=== PATIENT | female | born 1955 | race Caucasian/White ===

== ENCOUNTER 2018-05-09 01:19 | Inpatient (IN) | payer OTHER, SELFPAY ==
[2018-05-09] VITALS (17 sets, daily range): BP systolic 95–160; BP diastolic 56–99; PULSE 77–128; RESP 14–20; TEMP 36.7–39.7; O2SAT 93–98; BMI 33.9; BMI 33.4
--- NOTE | 2018-05-09 01:51 | ED.DCSUM_ITS ---
- ER Visit Summary Date of Service: 05/09/18 Chief Complaint: [] Fever and chills History of Present Illness: The patient is a 63 F patient states she has had a fever for the last 2 hours gradual onset intermittent. She did know she had a fever but she had chills. Tonight she had vomited vomiting ?[address] the hospital. She felt sick yesterday but no significant symptoms other than weakness and fatigue. She denies any respiratory symptoms. No sore throat and she has no pain in her abdomen back or other portions of her body. No urinary symptoms. No sick contacts. She has a history of remote diverticulitis but is not having any diarrhea or abdominal pain. Physical Examination: [] Vital signs reviewed General: Well-nourished well-developed Head: Normocephalic atraumatic Eyes: Pupils equal round and reactive to light extraocular movements intact ENT: TMs clear no hemotympanum no trauma Neck: Nontender full range of motion Cardiovascular: Regular tachycardia with normal rhythm no murmurs normal S1-S2 Respiratory: No distress clear to auscultation bilaterally chest nontender Abdomen: Soft nontender nondistended normal bowel sounds no masses Back: Nontender no CVA tenderness Extremities: Nontender active range of motion ?4 extremities no trauma Skin: Normal color no trauma Neuro alert oriented cranial nerves II through XII intact normal strength sensation reflexes Test Results: [] Emergency Department Course and Treatment: [] Patient given IV fluids Tylenol and Zofran. Lab work obtained lab work shows urinary tract infection with positive leukocytes nitrites 5200 whites and 1+ bacteria. Lactate is 2.5. Platelets 116. Chemistries normal except creatinine 1.1. Blood cultures ?2 pending. Patient felt better after treatment. Given a dose of ceftriaxone IV. At this time due to her sirs criteria being positive with a urinary infection and a elevated lactate she does eat severe sepsis criteria. She will be given a second liter fluid and will be admitted. Treatment Plan: [] Disposition: [] Impression: [] This note was generated with [employer] dictation software. It may contain incorrect words, spelling, and punctuation that were not noted in review of the chart prior to signing ED Disposition - Plan for ED Patient: Chief Complaint: General Illness Referrals: [facility] Doctor,Out of [Primary Care Provider] -
[2018-05-09] MEDS: Acetaminophen 500 MG Tablet 1000 MG PO (01:57)
[2018-05-09] MEDS: Ondansetron 4 MG/2 ML Vial IV (01:57)
[2018-05-09] MEDS: 0.9% Normal Saline 1,000 ML 1000 ML IV ×2 (01:57→02:35)
[2018-05-09 02:01] LABS: Absolute Lymphocyte Count 0.57 X10^3/ul (0.83-4.51); Absolute Neutrophil Count 8.2 X10^3/uL (2.0-7.7); Basophil# 0.03 X10^3/uL; Basophil% 0.3 % (0-1); Eosinophil# 0.07 X10^3/uL; Eosinophils% 0.8 % (0-5); Hematocrit 39.8 % (37-47); Hemoglobin 13.5 g/dl (12.0-15.0); Lymphocyte # 0.57 X10^3/ul (4.0); Lymphocyte % 6.3 % (19-41); Mean Corp Hgb Conc 33.9 g/gl (32-36); Mean Corpuscular Hgb 30.5 pg (27.0-32.0); Mean Platelet Vol. 11.5 fl (6.2-12.0); Monocyte# 0.17 X10^3/uL; Monocyte% 1.9 % (0-10); Neutrophil % 90.6 % (47-70); Platelet Count 116 K/mm3 (150-450); RBC Distribution Width CV 12.5 % (11.6-14.6); Red Blood Count 4.42 M/mm3 (4.2-5.4); White Blood Count 9.1 K/mm3 (4.4-11.0)
[2018-05-09 02:02] LABS: Differential Indicated SCAN CRITERIA MET; POSITIVE COUNT NO; POSITIVE DIFFERENTIAL YES; POSITIVE MORPHOLOGY NO
[2018-05-09 02:05] LABS: Mucous, Urine 0 SEEN /hpf (<or=2+)
[2018-05-09 02:06] LABS: Anion Gap 7 (5-15); BUN 11 mg/dL (7-18); BUN/Creat Ratio 9.6 RATIO (10-20); Calcium,Total 9.1 mg/dL (8.5-10.1); Chloride 106 mmol/L (98-107); Creatinine, Serum 1.14 mg/dL (0.55-1.02); EST Glomerular Filtration Rate 51 mL/min (>60); Est Glom Filt Rate - Afr Amer 62 mL/min (>60); Estimated Creatinine Clearance 49.76 ml/min; Glucose 150 mg/dL (74-106); Potassium 3.9 mmol/L (3.5-5.1); Sodium Level 139 mmol/L (136-145)
[2018-05-09 02:07] LABS: Color, Urine Yellow (Yellow); Glucose, Dipstick Normal (Normal); Ketone-Dipstick Negative (Negative); Leukocyte Esterase-Dipstick 500 /ul (Negative); Nitrite-Dipstick Positive (Negative); Occult Blood-Urine 50 /ul (Negative); Protein-Dipstick 30 mg/dl (Negative); Specific Gravity, Urine 1.015 (1.002-1.030); Urine Bilirubin Dipstick Negative (Negative); Urine Clarity Cloudy (Clear); Urine Urobilinogen Normal (Normal)
[2018-05-09 02:20] LABS: Red Blood Cells-Urine 5-10 SEEN /hpf (0-5); White Blood Cells 50-100 SEEN /hpf (0-5)
[2018-05-09 02:21] LABS: Bacteria 1+ /hpf (None Seen); Squamous Epithelial Cells - UA 0-5 SEEN /hpf (5-10)
[2018-05-09 02:23] LABS: Lactic Acid 2.5 mmol/L (0.4-2.0)
[2018-05-09] MEDS: Ceftriaxone 1 GM/50 ML BAG IV (02:42)
--- NOTE | 2018-05-09 03:51 | PCM.HP.STD ---
Problem List (1) Severe sepsis Status: Acute (2) UTI (urinary tract infection) Status: Acute (3) Lipidemia Status: Acute (4) HTN (hypertension) Status: Chronic (5) Depression Status: Acute History of Present Illness Date of Admission: 05/09/18 Chief Complaint: Severe sepsis secondary UTI The patient is a 63 year old female w/ h/o lipidemia, HTN, and depression admitted for severe sepsis secondary to UTI. She has been feeling unwell x 2 days. This AM, she felt nausea and was unable to tolerate any PO intake. She also has been having chill. Chill was constant and interfered with her ADLs. Nothing appeared to make it better or worse. She has increase frequency and dysuria. No burning sensation. No other diarrhea. Past Medical History Past Medical History (Chronic Problems): Chronic Problems HTN (hypertension) (Chronic) Allergies amoxicillin [From Augmentin] Adverse Reaction (Verified 05/09/18 01:20) Vomiting clavulanic acid [From Augmentin] Adverse Reaction (Verified 05/09/18 01:20) Vomiting Home Medications: Ambulatory Orders Medication Instructions Recorded Aspirin E.C. [Ecotrin] 81 mg PO DAILY@0800 05/09/18 Atorvastatin Calcium 40 mg PO DAILY 05/09/18 Calcium Carbonate [Calcium] 600 mg PO DAILY 05/09/18 Desloratadine [Clarinex] 5 mg PO DAILY 05/09/18 Esomeprazole Mag Trihydrate 20 mg PO DAILY 05/09/18 [Nexium] Fluoxetine HCl [Prozac] 20 mg PO DAILY 05/09/18 Lisinopril [Lisinopril] 20 mg PO DAILY 05/09/18 Magnesium 500 mg PO DAILY 05/09/18 Lives: Spouse/ Significant Other Smoking Status: Former smoker Alcohol: None Drugs: None - *Family History Maternal History Items: No pertinent history Review of Systems Constitutional: Denies: Chills, Fever, Weight Change HEENT: Denies: Head Aches, Sinus Congestion, Sinus Drainage Cardiovascular: Denies: Chest Pain, Palpitations Respiratory: Denies: Cough, Shortness of breath at rest, Sputum production Gastrointestinal: Denies: Abdominal Pain, Nausea, Vomiting Genitourinary: Denies: Dysuria Musculoskeletal: Denies: Joint Pain, Joint Tenderness Skin: Denies: Rash, Wounds Neurological: Denies: Numbness, Tingling, Focal weakness Psychiatric: Denies: Anxiety, Depression, Homicidal Ideations, Suicidal Ideations Hematologic/ Lymphatic: Denies: Easy Bruising, Easy Bleeding VTE Information - Inpt Only VTE Present on Admission: No VTE Mechan Device Prophylaxis: SCD's VTE Pharm Prophylaxis ordered?: Yes Patient Problems: Active and Suspected Problems Severe sepsis (Acute) UTI (urinary tract infection) (Acute) Lipidemia (Acute) Depression (Acute) - Physical Exam General: Alert, Oriented x3, Cooperative HEENT: Atraumatic, PERRLA, EOMI, Normocephalic Neck: Supple, No JVD, Negative Carotid Bruits Lungs: Clear to auscultation, Normal air movement Cardiovascular: Regular rate, No murmurs Abdomen: Bowel Sounds Present, Soft, Non Tender Extremities: No edema, Capillary Refill Less than 3 Seconds Skin: No rashes, No breakdown Musculoskeletal: No Tenderness to Palpation of Joints or Extremities Neurological: Cranial nerves II-XII grossly intact Psych/Mental Status: Normal Affect, Appropriate Vital Signs Temp Pulse Resp BP Pulse Ox 100.4 F H 104 H 14 119/65 95 05/09/18 02:45 05/09/18 02:45 05/09/18 02:45 05/09/18 02:45 05/09/18 02:45 Oxygen Delivery Method Room Air Weight: 98.2 kg Body Mass Index (BMI) 33.9 Laboratory Tests Past 24 Hrs 05/09/18 05/09/18 05/09/18 01:30 01:30 01:30 WBC 9.1 RBC 4.42 Hgb 13.5 Hct 39.8 MCV 90.0 MCH 30.5 MCHC 33.9 RDW 12.5 RDW Differential 41.0 Plt Count 116 L MPV 11.5 Immature Gran % (Auto) 0.100 Neut % (Auto) 90.6 H Lymph % (Auto) 6.3 L [place] % (Auto) 1.9 Eos % (Auto) 0.8 Baso % (Auto) 0.3 Absolute Neuts (auto) 8.2 H Absolute Lymphs (auto) 0.57 L Total Counted Not Reportable Sodium 139 Potassium 3.9 Chloride 106 Carbon Dioxide 26.0 Anion Gap 7 BUN 11 Creatinine 1.14 H Estim Creat Clear Calc 49.76 Est GFR (MDRD) Af Amer 62 Est GFR (MDRD) Non-Af 51 L BUN/Creatinine Ratio 9.6 L Glucose 150 H Lactic Acid 2.5 H Calcium 9.1 Urine Color Urine Clarity Urine pH Ur Specific [place] Urine Protein Urine Glucose (UA) Urine Ketones Urine Occult Blood Urine Nitrite Urine Bilirubin Urine Urobilinogen Ur Leukocyte Esterase Urine RBC Urine WBC Ur Squamous Epith Cells Urine Bacteria Urine Mucus 05/09/18 01:56 WBC RBC Hgb Hct MCV MCH MCHC RDW RDW Differential Plt Count MPV Immature Gran % (Auto) Neut % (Auto) Lymph % (Auto) [place] % (Auto) Eos % (Auto) Baso % (Auto) Absolute Neuts (auto) Absolute Lymphs (auto) Total Counted Sodium Potassium Chloride Carbon Dioxide Anion Gap BUN Creatinine Estim Creat Clear Calc Est GFR (MDRD) Af Amer Est GFR (MDRD) Non-Af BUN/Creatinine Ratio Glucose Lactic Acid Calcium Urine Color Yellow Urine Clarity Cloudy Urine pH 6.0 Ur Specific [place] 1.015 Urine Protein 30 H Urine Glucose (UA) Normal Urine Ketones Negative Urine Occult Blood 50 H Urine Nitrite Positive H Urine Bilirubin Negative Urine Urobilinogen Normal Ur Leukocyte Esterase 500 H Urine RBC 5-10 SEEN Urine WBC 50-100 SEEN Ur Squamous Epith Cells 0-5 SEEN Urine Bacteria 1+ Urine Mucus 0 SEEN Assessment/Plan All Active Problems Severe sepsis (Acute) UTI (urinary tract infection) (Acute) Lipidemia (Acute) Depression (Acute) 63 year old female w/ h/o lipidemia, HTN, and depression admitted for severe sepsis secondary to UTI. 1) Severe sepsis secondary to UTI: She has hypotension, tachycardia, and lactate noted. Will fluid resuscitate. C/w ceftriaxone. Repeat lactate. Cultures pending. 2) UTI: Ceftriaxone. Cultures pending. Will get bladder scan. If no improvement, will consider renal US. 3) Chronic issues: lipidemia and depression Resume home meds. 4) Prophylaxis: SCD / heparin
--- NOTE | 2018-05-09 04:49 | NURSING ---
Pt arrived to PCU at this time. 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
[2018-05-09] MEDS: Heparin Injection (Vial) 5,000 UNIT/ML VIAL 5000 UNIT SC ×3 (05:22→21:25)
[2018-05-09] MEDS: 0.9% Normal Saline 1,000 ML 100 ML IV ×2 (05:22→15:56)
[2018-05-09 05:53] LABS: Reflex Lactate? Y
[2018-05-09 06:29] LABS: Hematocrit 33.5 % (37-47); Hemoglobin 11.6 g/dl (12.0-15.0); Mean Corp Hgb Conc 34.6 g/gl (32-36); Mean Corpuscular Hgb 31.8 pg (27.0-32.0); Mean Corpuscular Volume 91.8 fL (81-99); Mean Platelet Vol. 11.2 fl (6.2-12.0); Platelet Count 109 K/mm3 (150-450); RBC Distribution Width CV 12.2 % (11.6-14.6); RBC Distribution Width SD 39.8 fl (35.1-43.9); Red Blood Count 3.65 M/mm3 (4.2-5.4); White Blood Count 11.5 K/mm3 (4.4-11.0)
[2018-05-09 06:31] LABS: Scan Indicated on CBC? Y/N NO
[2018-05-09 06:49] LABS: Anion Gap 7 (5-15); BUN 10 mg/dL (7-18); BUN/Creat Ratio 10.1 RATIO (10-20); Calcium,Total 8.1 mg/dL (8.5-10.1); Chloride 113 mmol/L (98-107); Creatinine, Serum 0.99 mg/dL (0.55-1.02); EST Glomerular Filtration Rate 60 mL/min (>60); Est Glom Filt Rate - Afr Amer 73 mL/min (>60); Glucose 132 mg/dL (74-106); Sodium Level 145 mmol/L (136-145)
[2018-05-09] MEDS: Loratadine 10 MG Tablet PO (09:25)
[2018-05-09] MEDS: Magnesium Oxide 400 MG Tablet PO (09:25)
[2018-05-09] MEDS: Aspirin E.C. 81 MG Tablet PO (09:25)
[2018-05-09] MEDS: Calcium (Elemental) 500 MG Tablet PO (09:25)
[2018-05-09] MEDS: Lisinopril 20 MG Tablet PO (09:26)
[2018-05-09] MEDS: FLUoxetine 20 MG Capsule PO (09:26)
[2018-05-09] MEDS: Pantoprazole Sodium 20 MG Tablet PO (09:26)
[2018-05-09] MEDS: Acetaminophen 325 MG Tablet 650 MG PO (11:58)
--- NOTE | 2018-05-09 13:04 | CASEMGMT ---
RN CM Assessment. DC Plan: Home No Needs identified. [place] JONESN RN ACM
[2018-05-09] MEDS: oxyCODONE 5 MG Tablet PO (13:58)
[2018-05-09] MEDS: Ceftriaxone 1 GM/50 mL Premix x1 IV (14:25)
[2018-05-09] MEDS: Atorvastatin Calcium 40 MG Tablet PO (21:24)
[2018-05-10] VITALS (11 sets, daily range): BP systolic 107–120; BP diastolic 62–78; PULSE 75–83; RESP 16; TEMP 36.8–37.6; O2SAT 92–98
[2018-05-10] MEDS: 0.9% Normal Saline 1,000 ML 100 ML IV ×3 (01:50→21:55)
[2018-05-10] MEDS: oxyCODONE 5 MG Tablet PO (06:16)
[2018-05-10] MEDS: Heparin Injection (Vial) 5,000 UNIT/ML VIAL 5000 UNIT SC ×3 (06:17→21:51)
[2018-05-10 06:54] LABS: Absolute Lymphocyte Count 0.69 X10^3/ul (0.83-4.51); Absolute Neutrophil Count 5.6 X10^3/uL (2.0-7.7); Basophil# 0.02 X10^3/uL; Basophil% 0.3 % (0-1); Eosinophil# 0.07 X10^3/uL; Hematocrit 33.9 % (37-47); Hemoglobin 11.1 g/dl (12.0-15.0); Lymphocyte # 0.69 X10^3/ul (4.0); Lymphocyte % 9.5 % (19-41); Mean Corp Hgb Conc 32.7 g/gl (32-36); Mean Corpuscular Hgb 30.7 pg (27.0-32.0); Mean Corpuscular Volume 93.9 fL (81-99); Mean Platelet Vol. 11.7 fl (6.2-12.0); Monocyte# 0.88 X10^3/uL; Monocyte% 12.1 % (0-10); Neutrophil # 5.62 X10^3/uL (2.7-7.7); Platelet Count 86 K/mm3 (150-450); RBC Distribution Width CV 12.7 % (11.6-14.6); RBC Distribution Width SD 42.5 fl (35.1-43.9); Red Blood Count 3.61 M/mm3 (4.2-5.4); White Blood Count 7.3 K/mm3 (4.4-11.0)
[2018-05-10 06:57] LABS: POSITIVE COUNT NO; POSITIVE DIFFERENTIAL NO; POSITIVE MORPHOLOGY NO
[2018-05-10] MEDS: Aspirin E.C. 81 MG Tablet PO (07:57)
--- NOTE | 2018-05-10 08:15 | PCM.PROGNOTE ---
Patient Problems: Active and Suspected Problems Severe sepsis (Acute) UTI (urinary tract infection) (Acute) Subjective: Chief complaint: Follow-up after admission for severe sepsis due to acute cystitis. She was found to have gram-negative bacteremia. Patient seen and examined. No acute events overnight. Today, she mentioned that she does not feel well, having some headache. She denies any specific symptoms. Denied chest pain or shortness of breath. Denied cough or sputum production. Denied abdominal pain, nausea vomiting. Maximum temperature overnight was 99.7 Fahrenheit. Other vital signs are stable. - Physical Exam General: Alert, Oriented x3, Cooperative, No apparent distress HEENT: Atraumatic, PERRLA, EOMI, Normocephalic Oral: Moist Mucosa, No Gingival or Mucosal Lesions/ Ulcerations Neck: Supple, No JVD, Negative Carotid Bruits, Trachea Midline, Thyroid Normal Size and Texture Lungs: Clear to auscultation, No rhonchi, No wheeze, No rales, Diminished Cardiovascular: Regular rate, Regular Rhythm, Normal S1, Normal S2, No murmurs Abdomen: Bowel Sounds Present, Soft, Non Tender, Non-Distended, No Hepato-splenomegaly Extremities: No clubbing, No cyanosis, No edema Skin: No rashes, No breakdown Lymphatic: No Cervical, Supraclavicular, or Inguinal Adenopathy Neurological: Cranial nerves II-XII grossly intact, Motor Exam 5/5 strength throughout Psych/Mental Status: Normal Affect, Appropriate, Alert and oriented to time, place, person, mood and affect Vital Signs Temp Pulse Resp BP Pulse Ox 99.6 F H 81 16 107/65 92 05/10/18 03:20 05/10/18 06:54 05/10/18 03:20 05/10/18 03:20 05/10/18 03:20 Oxygen Delivery Method Room Air Weight: 213 lb 6.519 oz Body Mass Index (BMI) 33.4 Intake and Output for Last 24 Hours 05/08/18 05/09/18 05/10/18 23:59 23:59 23:59 Intake Total 3219 / 3219 675 / 675 Output Total 700 / 700 Balance 2519 / 2519 675 / 675 Laboratory Tests Past 24 Hrs 05/10/18 06:00 WBC 7.3 RBC 3.61 L Hgb 11.1 L Hct 33.9 L MCV 93.9 MCH 30.7 MCHC 32.7 RDW 12.7 RDW Differential 42.5 Plt Count 86 L MPV 11.7 Immature Gran % (Auto) 0.100 Neut % (Auto) 77.0 H Lymph % (Auto) 9.5 L [place] % (Auto) 12.1 H Eos % (Auto) 1.0 Baso % (Auto) 0.3 Absolute Neuts (auto) 5.6 Absolute Lymphs (auto) 0.69 L Total Counted Not Reportable Medical Necessity - Tobacco Use Smoking Status: Former smoker Assessment/Plan All Active Problems Severe sepsis (Acute) UTI (urinary tract infection) (Acute) This is a 63 years old female patient presented to the medicine because of fever and chills, found to have acute cystitis with severe sepsis as well as gram-negative bacteremia. #1 acute cystitis/severe sepsis: She is on IV Rocephin. Her vital signs are stable, maximum temperature overnight was 99.7 Fahrenheit. Leukocytosis resolved. Urine cultures pending. Blood culture revealed gram-negative rods, final is pending. Plan to continue same treatment. #2 gram-negative bacteremia: Source is likely the acute cystitis. 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 She is on IV Rocephin as above. Infectious disease consulted, plan to continue same treatment, repeat blood culture later tomorrow or after tomorrow morning. #3 hypertension: Blood pressure stable, continue lisinopril. #4 hyperlipidemia: Continue statins. #5 depression: Continue Prozac. #6 GERD: Continue PPI. #7 DVT prophylaxis: Subcu heparin. This note was generated with [employer] dictation software. It may contain incorrect words, spelling, and punctuation that were not noted in checking the note before signing. Code Visit Inpatient E&M: 38124 Subs Hosp L3
--- NOTE | 2018-05-10 08:20 | PN_ITS ---
Patient Problems: Active and Suspected Problems Severe sepsis (Acute) UTI (urinary tract infection) (Acute) Subjective: Chief complaint: Follow-up after admission for severe sepsis due to acute cystitis. She was found to have gram-negative bacteremia. Patient seen and examined. No acute events overnight. Today, she mentioned that she does not feel well, having some headache. She denies any specific symptoms. Denied chest pain or shortness of breath. Denied cough or sputum production. Denied abdominal pain, nausea vomiting. Maximum temperature overnight was 99.7 Fahrenheit. Other vital signs are stable. - Physical Exam General: Alert, Oriented x3, Cooperative, No apparent distress HEENT: Atraumatic, PERRLA, EOMI, Normocephalic Oral: Moist Mucosa, No Gingival or Mucosal Lesions/ Ulcerations Neck: Supple, No JVD, Negative Carotid Bruits, Trachea Midline, Thyroid Normal Size and Texture Lungs: Clear to auscultation, No rhonchi, No wheeze, No rales, Diminished Cardiovascular: Regular rate, Regular Rhythm, Normal S1, Normal S2, No murmurs Abdomen: Bowel Sounds Present, Soft, Non Tender, Non-Distended, No Hepato- splenomegaly Extremities: No clubbing, No cyanosis, No edema Skin: No rashes, No breakdown Lymphatic: No Cervical, Supraclavicular, or Inguinal Adenopathy Neurological: Cranial nerves II-XII grossly intact, Motor Exam 5/5 strength throughout Psych/Mental Status: Normal Affect, Appropriate, Alert and oriented to time, place, person, mood and affect Vital Signs Temp Pulse Resp BP Pulse Ox 99.6 F H 81 16 107/65 92 05/10/18 03:20 05/10/18 06:54 05/10/18 03:20 05/10/18 03:20 05/10/18 03:20 Oxygen Delivery Method Room Air Weight: 213 lb 6.519 oz Body Mass Index (BMI) 33.4 Intake and Output for Last 24 Hours 05/08/18 05/09/18 05/10/18 23:59 23:59 23:59 Intake Total 3219 / 3219 675 / 675 Output Total 700 / 700 Balance 2519 / 2519 675 / 675 Laboratory Tests Past 24 Hrs 05/10/18 06:00 WBC 7.3 RBC 3.61 L Hgb 11.1 L Hct 33.9 L MCV 93.9 MCH 30.7 MCHC 32.7 RDW 12.7 RDW Differential 42.5 Plt Count 86 L MPV 11.7 Immature Gran % (Auto) 0.100 Neut % (Auto) 77.0 H Lymph % (Auto) 9.5 L [place] % (Auto) 12.1 H Eos % (Auto) 1.0 Baso % (Auto) 0.3 Absolute Neuts (auto) 5.6 Absolute Lymphs (auto) 0.69 L Total Counted Not Reportable Medical Necessity - Tobacco Use Smoking Status: Former smoker Assessment/Plan All Active Problems Severe sepsis (Acute) UTI (urinary tract infection) (Acute) This is a 63 years old female patient presented to the medicine because of fever and chills, found to have acute cystitis with severe sepsis as well as gram-negative bacteremia. #1 acute cystitis/severe sepsis: She is on IV Rocephin. Her vital signs are stable, maximum temperature overnight was 99.7 Fahrenheit. Leukocytosis resolved. Urine cultures pending. Blood culture revealed gram-negative rods, final is pending. Plan to continue same treatment. #2 gram-negative bacteremia: Source is likely the acute cystitis. 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 She is on IV Rocephin as above. Infectious disease consulted, plan to continue same treatment, repeat blood culture later tomorrow or after tomorrow morning. #3 hypertension: Blood pressure stable, continue lisinopril. #4 hyperlipidemia: Continue statins. #5 depression: Continue Prozac. #6 GERD: Continue PPI. #7 DVT prophylaxis: Subcu heparin. This note was generated with [employer] dictation software. It may contain incorrect words, spelling, and punctuation that were not noted in checking the note before signing. Code Visit Inpatient E&M: 33298 Subs Hosp L3
[2018-05-10] MEDS: Ibuprofen 400 MG Tablet PO ×2 (09:57→19:30)
[2018-05-10] MEDS: Loratadine 10 MG Tablet PO (09:58)
[2018-05-10] MEDS: Magnesium Oxide 400 MG Tablet PO (09:58)
[2018-05-10] MEDS: Calcium (Elemental) 500 MG Tablet PO (09:58)
[2018-05-10] MEDS: Lisinopril 20 MG Tablet PO (09:58)
[2018-05-10] MEDS: Pantoprazole Sodium 20 MG Tablet PO (09:58)
[2018-05-10] MEDS: FLUoxetine 20 MG Capsule PO (09:58)
[2018-05-10] MEDS: 0.9% NaCl Peripheral Flush Adult/Peds IV (12:55)
[2018-05-10] MEDS: Atorvastatin Calcium 40 MG Tablet PO (21:51)
[2018-05-10] MEDS: Docusate Sodium 100 MG Capsule PO (21:55)
[2018-05-11] VITALS (13 sets, daily range): BP systolic 112–140; BP diastolic 67–77; PULSE 69–109; RESP 16–18; TEMP 36.8–37.2; O2SAT 93–98
[2018-05-11] MEDS: Heparin Injection (Vial) 5,000 UNIT/ML VIAL 5000 UNIT SC ×2 (06:38→15:37)
[2018-05-11 07:01] LABS: Absolute Lymphocyte Count 0.61 X10^3/ul (0.83-4.51); Absolute Neutrophil Count 2.9 X10^3/uL (2.0-7.7); Basophil# 0.02 X10^3/uL; Basophil% 0.5 % (0-1); Eosinophil# 0.15 X10^3/uL; Eosinophils% 3.5 % (0-5); Hematocrit 31.7 % (37-47); Hemoglobin 10.5 g/dl (12.0-15.0); Lymphocyte # 0.61 X10^3/ul (4.0); Lymphocyte % 14.4 % (19-41); Mean Corp Hgb Conc 33.1 g/gl (32-36); Mean Corpuscular Hgb 31.1 pg (27.0-32.0); Mean Corpuscular Volume 93.8 fL (81-99); Mean Platelet Vol. 11.2 fl (6.2-12.0); Monocyte% 14.1 % (0-10); Neutrophil # 2.86 X10^3/uL (2.7-7.7); Neutrophil % 67.3 % (47-70); Platelet Count 79 K/mm3 (150-450); RBC Distribution Width CV 12.5 % (11.6-14.6); RBC Distribution Width SD 41.3 fl (35.1-43.9); Red Blood Count 3.38 M/mm3 (4.2-5.4); White Blood Count 4.3 K/mm3 (4.4-11.0)
[2018-05-11 07:11] LABS: POSITIVE COUNT NO; POSITIVE DIFFERENTIAL NO; POSITIVE MORPHOLOGY NO
[2018-05-11 07:14] LABS: Anion Gap 6 (5-15); BUN 9 mg/dL (7-18); BUN/Creat Ratio 11.1 RATIO (10-20); Calcium,Total 8.3 mg/dL (8.5-10.1); Chloride 113 mmol/L (98-107); Creatinine, Serum 0.81 mg/dL (0.55-1.02); EST Glomerular Filtration Rate 76 mL/min (>60); Est Glom Filt Rate - Afr Amer 92 mL/min (>60); Estimated Creatinine Clearance 70.03 ml/min; Glucose 94 mg/dL (74-106); Potassium 4.2 mmol/L (3.5-5.1); Sodium Level 147 mmol/L (136-145)
[2018-05-11] MEDS: 0.9% Normal Saline 1,000 ML 100 ML IV (07:34)
[2018-05-11] MEDS: Aspirin E.C. 81 MG Tablet PO (07:34)
[2018-05-11] MEDS: Ibuprofen 400 MG Tablet PO ×2 (07:40→15:44)
--- NOTE | 2018-05-11 08:11 | PCM.PROGNOTE ---
Patient Problems: Active and Suspected Problems Severe sepsis (Acute) UTI (urinary tract infection) (Acute) Subjective: Chief complaint: Follow-up after admission for severe sepsis due to E. coli acute cystitis as well as E. coli bacteremia. Patient seen and examined. No acute events overnight. Today, she feels better. She denies any significant complaints. Vital signs are stable, afebrile. - Physical Exam General: Alert, Oriented x3, Cooperative, No apparent distress HEENT: Atraumatic, PERRLA, EOMI, Normocephalic Oral: Moist Mucosa, No Gingival or Mucosal Lesions/ Ulcerations Neck: Supple, No JVD, Negative Carotid Bruits, Trachea Midline, Thyroid Normal Size and Texture Lungs: Clear to auscultation, No rhonchi, No wheeze, No rales, Diminished Cardiovascular: Regular rate, Regular Rhythm, Normal S1, Normal S2, No murmurs, PMI Normal Abdomen: Bowel Sounds Present, Soft, Non Tender, Non-Distended, No Hepato-splenomegaly Extremities: No clubbing, No cyanosis, No edema Skin: No rashes, No breakdown Lymphatic: No Cervical, Supraclavicular, or Inguinal Adenopathy Neurological: Cranial nerves II-XII grossly intact, Neuro grossly intact Psych/Mental Status: Normal Affect, Appropriate, Alert and oriented to time, place, person, mood and affect Vital Signs Temp Pulse Resp BP Pulse Ox 98.5 F 81 16 112/69 93 05/11/18 03:45 05/11/18 03:45 05/11/18 03:45 05/11/18 03:45 05/11/18 03:45 Oxygen Delivery Method Room Air Weight: 209 lb 14.081 oz Body Mass Index (BMI) 33.4 Intake and Output for Last 24 Hours 05/09/18 05/10/18 05/11/18 23:59 23:59 23:59 Intake Total 3219 / 3219 3190 / 3190 711 / 711 Output Total 700 / 700 Balance 2519 / 2519 3190 / 3190 711 / 711 Laboratory Tests Past 24 Hrs 05/11/18 05/11/18 06:15 06:15 WBC 4.3 L RBC 3.38 L Hgb 10.5 L Hct 31.7 L MCV 93.8 MCH 31.1 MCHC 33.1 RDW 12.5 RDW Differential 41.3 Plt Count 79 L MPV 11.2 Immature Gran % (Auto) 0.200 Neut % (Auto) 67.3 Lymph % (Auto) 14.4 L [place] % (Auto) 14.1 H Eos % (Auto) 3.5 Baso % (Auto) 0.5 Absolute Neuts (auto) 2.9 Absolute Lymphs (auto) 0.61 L Total Counted Not Reportable Sodium 147 H Potassium 4.2 Chloride 113 H Carbon Dioxide 28.0 Anion Gap 6 BUN 9 Creatinine 0.81 Estim Creat Clear Calc 70.03 Est GFR (MDRD) Af Amer 92 Est GFR (MDRD) Non-Af 76 BUN/Creatinine Ratio 11.1 Glucose 94 Calcium 8.3 L Microbiology 05/09/18 02:05 Blood Culture (Wb) - Left Hand Blood Culture - Final Presumptive E. coli 05/09/18 01:30 Blood Culture (Wb) - Anticubital Right Blood Culture - Final Escherichia coli 05/09/18 01:56 Urine, Clean Catch Urine Culture - Preliminary Presumptive E. coli Medical Necessity - Tobacco Use Smoking Status: Former smoker Assessment/Plan All Active Problems Severe sepsis (Acute) UTI (urinary tract infection) (Acute) This is a 63 years old female patient presented to the medicine because of fever and chills, found to have acute cystitis with severe sepsis as well as gram-negative bacteremia. #1 E. coli acute cystitis/severe sepsis: She is on IV Rocephin. Symptoms improved, vital signs are stable and she has been afebrile.Leukocytosis resolved. Urine cultures revealed E. coli. Blood culture revealed presumptive E. coli which is sensitive to Rocephin. Infectious disease consulted. Plan to continue same treatment, repeat blood culture later today or tomorrow morning. #2 E. coli bacteremia: Source is likely the acute cystitis. Blood culture and sensitivity reviewed. She is on IV Rocephin as above. Infectious disease consulted, plan as above. #3 hypertension: Blood pressure stable, continue lisinopril. #4 hyperlipidemia: Continue statins. #5 depression: Continue Prozac. #6 GERD: Continue PPI. #7 DVT prophylaxis: Subcu heparin. This note was generated with [employer]ation software. It may contain incorrect words, spelling, and punctuation that were not noted in checking the note before signing. Code Visit Inpatient E&M: 25465 Subs Hosp L2
[2018-05-11] MEDS: Loratadine 10 MG Tablet PO (10:10)
[2018-05-11] MEDS: 0.9% NaCl Peripheral Flush Adult/Peds IV (10:10)
[2018-05-11] MEDS: Lisinopril 20 MG Tablet PO (10:11)
[2018-05-11] MEDS: FLUoxetine 20 MG Capsule PO (10:11)
[2018-05-11] MEDS: Magnesium Oxide 400 MG Tablet PO (10:11)
[2018-05-11] MEDS: Docusate Sodium 100 MG Capsule PO ×2 (10:11→22:15)
[2018-05-11] MEDS: Calcium (Elemental) 500 MG Tablet PO (10:11)
[2018-05-11] MEDS: Pantoprazole Sodium 20 MG Tablet PO (10:11)
--- NOTE | 2018-05-11 15:47 | PCM.HP.ID ---
Problem List (1) UTI (urinary tract infection) Status: Acute Reason for Consult: bacteremia Consulted by: Dr. Dumont History of Present Illness: The patient is a 63 year old F who presented 05/09 with acute onset that prior evening of shakes and chills. Had noticed some urinary urgency, but no dysuria, over the prior few days. No recent abx, no ho kidney stones. No abd pain or flank pain. Did have some associated n/v. Came to ED, temp was 103.5, lactate up, started on ceftriaxone. Now bcx and ucx (+) for ecoli. Feeling better, no further fever. Full ROS performed and neg except as noted above. - Medical History Past Medical History (Chronic Problems): Chronic Problems Hyperlipidemia (Chronic) HTN (hypertension) (Chronic) Depression (Chronic) Allergies/Adverse Reactions: Allergies amoxicillin [From Augmentin] Adverse Reaction (Verified 05/09/18 01:20) Vomiting clavulanic acid [From Augmentin] Adverse Reaction (Verified 05/09/18 01:20) Vomiting Home Medications: Ambulatory Orders Medication Instructions Recorded Aspirin E.C. [Ecotrin] 81 mg PO DAILY@0800 05/09/18 Atorvastatin Calcium 40 mg PO DAILY 05/09/18 Calcium Carbonate [Calcium] 600 mg PO DAILY 05/09/18 Desloratadine [Clarinex] 5 mg PO DAILY 05/09/18 Esomeprazole Mag Trihydrate 20 mg PO DAILY 05/09/18 [Nexium] Fluoxetine HCl [Prozac] 20 mg PO DAILY 05/09/18 Lisinopril [Lisinopril] 20 mg PO DAILY 05/09/18 Magnesium 500 mg PO DAILY 05/09/18 - Social History SMOKING STATUS:: Former smoker Vital Signs Temp Pulse Resp BP Pulse Ox 98.7 F 85 16 133/67 H 97 05/11/18 10:01 05/11/18 10:01 05/11/18 10:01 05/11/18 10:01 05/11/18 11:00 Oxygen Delivery Method Room Air Weight: 95.2 kg Body Mass Index (BMI) 33.4 Laboratory Tests Past 24 Hrs 05/11/18 05/11/18 06:15 06:15 WBC 4.3 L RBC 3.38 L Hgb 10.5 L Hct 31.7 L MCV 93.8 MCH 31.1 MCHC 33.1 RDW 12.5 RDW Differential 41.3 Plt Count 79 L MPV 11.2 Immature Gran % (Auto) 0.200 Neut % (Auto) 67.3 Lymph % (Auto) 14.4 L [place] % (Auto) 14.1 H Eos % (Auto) 3.5 Baso % (Auto) 0.5 Absolute Neuts (auto) 2.9 Absolute Lymphs (auto) 0.61 L Total Counted Not Reportable Sodium 147 H Potassium 4.2 Chloride 113 H Carbon Dioxide 28.0 Anion Gap 6 BUN 9 Creatinine 0.81 Estim Creat Clear Calc 70.03 Est GFR (MDRD) Af Amer 92 Est GFR (MDRD) Non-Af 76 BUN/Creatinine Ratio 11.1 Glucose 94 Calcium 8.3 L - Other Studies Radiology: [] reviewed Other Studies: [] Route of nutrition/ use of supplements: [] Nutritional Intake: [] IV Site: [] Haney Catheter: [] - Physical Exam General: Alert, Oriented x3, Cooperative, No apparent distress HEENT: Atraumatic, PERRLA, EOMI Neck: Supple, No Nodes Lungs: Clear to auscultation, Normal air movement Cardiovascular: Regular rate, Regular Rhythm, No murmurs Abdomen: Bowel Sounds Present, Soft, Non Tender, Non-Distended, - - no flank tenderness Extremities: No edema Skin: No rashes, Rash Present IV Site: Peripheral, without redness Musculoskeletal: No Tenderness to Palpation of Joints or Extremities Neurological: Cranial nerves II-XII grossly intact - Assessment/Plan Antibiotics: [] Assessment/Plan: [] Active and Suspected Problems Severe sepsis (Acute) UTI (urinary tract infection) (Acute) severe sepsis due to ecoli bacteremia from urinary source - much improved. Will change ceftriaxone to po cipro, plan on 10 day course, stop date 05/19/18. Will follow, thank you.
--- NOTE | 2018-05-11 16:54 | NURSING ---
THIS RN TAKING OVER PT CARE AT THIS TIME.
[2018-05-11] MEDS: Atorvastatin Calcium 40 MG Tablet PO (22:15)
[2018-05-11] MEDS: Ciprofloxacin 500 MG Tablet PO (22:15)
[2018-05-12 02:20] VITALS: BP 130/67; PULSE 76; RESP 16; TEMP 36.8; O2SAT 98
[2018-05-12 03:00] VITALS: PULSE 69
[2018-05-12 07:12] VITALS: PULSE 102
[2018-05-12 07:50] VITALS: O2SAT 97
--- NOTE | 2018-05-12 08:10 | DCINST_ITS ---
- Discharge Diagnoses Current Active Problems: Current Active and Chronic Problems Severe sepsis (Acute) UTI (urinary tract infection) (Acute) HTN (hypertension) (Chronic) Depression (Chronic) You will use the following diet at home:: Cardiac Your food should be the consistency of: Regular Discharge Activity: Return to Normal Activity Weight Bearing Status: Full weight bearing Call your doctor if you observe: Fever of 101 or Higher, Shortness of breath, Dizziness, Fainting spells, Chest pain, Increased palpitations (irregular heartbeat), Uncontrolled pain Allergies/Adverse Reactions: Allergies amoxicillin [From Augmentin] Adverse Reaction (Verified 05/09/18 01:20) Vomiting clavulanic acid [From Augmentin] Adverse Reaction (Verified 05/09/18 01:20) Vomiting Medications to take at Discharge Aspirin E.C. [Ecotrin] 81 mg PO DAILY@0800 05/09/18 Atorvastatin Calcium 40 mg PO DAILY 05/09/18 Calcium Carbonate [Calcium] 600 mg PO DAILY 05/09/18 Desloratadine [Clarinex] 5 mg PO DAILY 05/09/18 Esomeprazole Mag Trihydrate [Nexium] 20 mg PO DAILY 05/09/18 Fluoxetine HCl [Prozac] 20 mg PO DAILY 05/09/18 Lisinopril 20 mg PO DAILY 05/09/18 Magnesium 500 mg PO DAILY 05/09/18 Ciprofloxacin [Cipro] 500 mg PO BID #20 tab 05/12/18 The following prescriptions were given: Ciprofloxacin [Cipro] 500 mg PO BID #20 tab Primary Care Physician: [facility] Doctor,Out of [NON-STAFF] - Please follow up with your Primary Care Physician in: 2-3 weeks. Test Results: Test results from this visit will be discussed in further detail at your follow- up appointment, if applicable. Please Follow Up With: Stefano Guo MD When: 7-10 days
--- NOTE | 2018-05-12 13:39 | PCM.DC.SUM ---
Discharge Date and Diagnosis Date of Admission: 05/09/18 Date of Discharge: 05/12/18 - Primary Discharge Diagnosis #1 E. coli acute cystitis/severe sepsis. #2 E. coli bacteremia. - Secondary Discharge Diagnosis Chronic Problems Hyperlipidemia (Chronic) HTN (hypertension) (Chronic) Depression (Chronic) Hospital Course and Treatment Dr. guo, infectious disease Operations: None Procedures: None Summary of Care Provided: Patient seen and examined on the day of discharge and appeared to be stable to be discharged home. She denied any significant complaints on the day of discharge. Her vital signs have been stable and has been afebrile for more than 48 hours. - Physical Exam General: Alert, Oriented x3, Cooperative, No apparent distress. HEENT: Atraumatic, PERRLA, EOMI. Neck: Supple, No JVD, Negative Carotid Bruits, Trachea Midline, Thyroid Normal. Lungs: Clear to auscultation, Normal air movement, No rhonchi, No wheeze, No rales. Cardiovascular: Regular rate, Regular Rhythm, Normal S1, Normal S2, PMI Normal. Abdomen: Bowel Sounds Present, Soft, Non Tender, Non-Distended, No Hepato-splenomegaly. Extremities: No clubbing, No cyanosis, No edema Skin: No rashes, No breakdown Neurological: Neuro grossly intact Vital Signs stable. : Hospital course: The patient is a 63 year old F admitted because of fever, chills and malaise and she was found to have acute cystitis complicated by severe sepsis and gram-negative bacteremia. On admission, patient was febrile, tachycardic, has leukocytosis and her lactic acid was 2.5. Her urinalysis revealed cloudy urine, positive for nitrite and leukocyte esterase and there was 50-100 WBCs and 1+ bacteria. She was treated with IV fluids and IV antibiotics. Lactic acid was sent back to normal. Leukocytosis resolved. Urine culture revealed E. coli. Blood culture also revealed E. coli. She was diagnosed with E. coli bacteremia with source of infection as the acute cystitis. Infectious disease consulted and recommended to start ciprofloxacin twice daily to complete 10 days of treatment. Patient remained afebrile for more than 48 hours. Her other routine blood work was unremarkable. Repeat blood culture done on the day of discharge. Patient discharged home in a stable medical condition, discharged on ciprofloxacin 500 mg p.o. twice daily to complete 10 days of treatment, plan to follow-up with infectious disease in 7-10 days, follow-up with PCP in 2-3 weeks. Discharge Activity: Return to Normal Activity Weight Bearing Status: Full weight bearing Call your doctor if you observe: Fever of 101 or Higher, Shortness of breath, Dizziness, Fainting spells, Chest pain, Increased palpitations (irregular heartbeat), Uncontrolled pain Home Medications: Medications to take at Discharge Aspirin E.C. [Ecotrin] 81 mg PO DAILY@0800 05/09/18 Atorvastatin Calcium 40 mg PO DAILY 05/09/18 Calcium Carbonate [Calcium] 600 mg PO DAILY 05/09/18 Desloratadine [Clarinex] 5 mg PO DAILY 05/09/18 Esomeprazole Mag Trihydrate [Nexium] 20 mg PO DAILY 05/09/18 Fluoxetine HCl [Prozac] 20 mg PO DAILY 05/09/18 Lisinopril 20 mg PO DAILY 05/09/18 Magnesium 500 mg PO DAILY 05/09/18 Ciprofloxacin [Cipro] 500 mg PO BID #20 tab 05/12/18 Following Prescrptions Were Given to Patient: Ciprofloxacin [Cipro] 500 mg PO BID #20 tab Primary Care Physician: [facility] Doctor,Out of [NON-STAFF] - Please follow up with your Primary Care Physician in: 2-3 weeks. Please Follow Up With: Stefano Guo MD When: 7-10 days Disposition: Home Minutes spent on discharge:: 32 Patient Condition:: Stable Medical Necessity - Tobacco Use Smoking Status: Former smoker Meaningful Use Info Meaningful Use Diagnoses (Choose all that apply): None applicable Code Visit Inpatient E&M: 37160 Disch Hosp
--- NOTE | 2018-05-12 13:43 | DS.PCM_ITS ---
Discharge Date and Diagnosis Date of Admission: 05/09/18 Date of Discharge: 05/12/18 - Primary Discharge Diagnosis #1 E. coli acute cystitis/severe sepsis. #2 E. coli bacteremia. - Secondary Discharge Diagnosis Chronic Problems Hyperlipidemia (Chronic) HTN (hypertension) (Chronic) Depression (Chronic) Hospital Course and Treatment Dr. guo, infectious disease Operations: None Procedures: None Summary of Care Provided: Patient seen and examined on the day of discharge and appeared to be stable to be discharged home. She denied any significant complaints on the day of discharge. Her vital signs have been stable and has been afebrile for more than 48 hours. - Physical Exam General: Alert, Oriented x3, Cooperative, No apparent distress. HEENT: Atraumatic, PERRLA, EOMI. Neck: Supple, No JVD, Negative Carotid Bruits, Trachea Midline, Thyroid Normal. Lungs: Clear to auscultation, Normal air movement, No rhonchi, No wheeze, No rales. Cardiovascular: Regular rate, Regular Rhythm, Normal S1, Normal S2, PMI Normal. Abdomen: Bowel Sounds Present, Soft, Non Tender, Non-Distended, No Hepato- splenomegaly. Extremities: No clubbing, No cyanosis, No edema Skin: No rashes, No breakdown Neurological: Neuro grossly intact Vital Signs stable. : Hospital course: The patient is a 63 year old F admitted because of fever, chills and malaise and she was found to have acute cystitis complicated by severe sepsis and gram- negative bacteremia. On admission, patient was febrile, tachycardic, has leukocytosis and her lactic acid was 2.5. Her urinalysis revealed cloudy urine , positive for nitrite and leukocyte esterase and there was 50-100 WBCs and 1+ bacteria. She was treated with IV fluids and IV antibiotics. Lactic acid was sent back to normal. Leukocytosis resolved. Urine culture revealed E. coli. Blood culture also revealed E. coli. She was diagnosed with E. coli bacteremia with source of infection as the acute cystitis. Infectious disease consulted and recommended to start ciprofloxacin twice daily to complete 10 days of treatment. Patient remained afebrile for more than 48 hours. Her other routine blood work was unremarkable. Repeat blood culture done on the day of discharge. Patient discharged home in a stable medical condition, discharged on ciprofloxacin 500 mg p.o. twice daily to complete 10 days of treatment, plan to follow-up with infectious disease in 7-10 days, follow-up with PCP in 2-3 weeks. Discharge Activity: Return to Normal Activity Weight Bearing Status: Full weight bearing Call your doctor if you observe: Fever of 101 or Higher, Shortness of breath, Dizziness, Fainting spells, Chest pain, Increased palpitations (irregular heartbeat), Uncontrolled pain Home Medications: Medications to take at Discharge Aspirin E.C. [Ecotrin] 81 mg PO DAILY@0800 05/09/18 Atorvastatin Calcium 40 mg PO DAILY 05/09/18 Calcium Carbonate [Calcium] 600 mg PO DAILY 05/09/18 Desloratadine [Clarinex] 5 mg PO DAILY 05/09/18 Esomeprazole Mag Trihydrate [Nexium] 20 mg PO DAILY 05/09/18 Fluoxetine HCl [Prozac] 20 mg PO DAILY 05/09/18 Lisinopril 20 mg PO DAILY 05/09/18 Magnesium 500 mg PO DAILY 05/09/18 Ciprofloxacin [Cipro] 500 mg PO BID #20 tab 05/12/18 Following Prescrptions Were Given to Patient: Ciprofloxacin [Cipro] 500 mg PO BID #20 tab Primary Care Physician: [facility] Doctor,Out of [NON-STAFF] - Please follow up with your Primary Care Physician in: 2-3 weeks. Please Follow Up With: Stefano Guo MD When: 7-10 days Disposition: Home Minutes spent on discharge:: 32 Patient Condition:: Stable Medical Necessity - Tobacco Use Smoking Status: Former smoker Meaningful Use Info Meaningful Use Diagnoses (Choose all that apply): None applicable Code Visit Inpatient E&M: 28090 Disch Hosp
== END 2018-05-12 09:15 | disposition home or self-care (01) | DRG 872 ==
LOC: ED 02:51 → ICU 03:57 → PCU 04:37
PROVIDERS: Admitting Provider Internal Medicine; Emergency Provider Emergency Medicine; Family Provider Nurse Practitioner; PCP Nurse Practitioner; Visit Provider Hospitalist
DX: A41.51 Sepsis due to Escherichia coli [E. coli] (principal); N30.00 Acute cystitis without hematuria; B96.20 Unspecified Escherichia coli [E. coli] as the cause of diseases classified elsewhere; R65.20 Severe sepsis without septic shock; D69.6 Thrombocytopenia, unspecified; I10 Essential (primary) hypertension; E78.5 Hyperlipidemia, unspecified; F32.9 Major depressive disorder, single episode, unspecified; K21.9 Gastro-esophageal reflux disease without esophagitis; Z79.82 Long term (current) use of aspirin; Z79.899 Other long term (current) drug therapy; Z87.19 Personal history of other diseases of the digestive system; Z87.891 Personal history of nicotine dependence
CPT/HCPCS: 36415; 80048; 81001; 83605; 85025; 85027; 87040; 87077; 87086; 87088; 87186; 94762; 99285; J7030; J7040; A4216; J0696; J2405

== ENCOUNTER → 2018-12-24 23:15 | Outpatient (CLI) | payer OTHER, SELFPAY ==
[2018-12-24 15:23] VITALS: BMI 33.3
[2018-12-24 23:33] LABS: Absolute Lymphocyte Count 1.27 X10^3/ul (0.83-4.51); Absolute Neutrophil Count 3.7 X10^3/uL (2.0-7.7); Basophil# 0.06 X10^3/uL; Eosinophils% 1.7 % (0-5); Hematocrit 44.7 % (37-47); Hemoglobin 14.5 g/dl (12.0-15.0); Lymphocyte # 1.27 X10^3/ul (4.0); Lymphocyte % 22.1 % (19-41); Mean Corp Hgb Conc 32.4 g/gl (32-36); Mean Corpuscular Hgb 30.1 pg (27.0-32.0); Mean Corpuscular Volume 92.7 fL (81-99); Mean Platelet Vol. 12.4 fl (6.2-12.0); Monocyte# 0.63 X10^3/uL; Neutrophil # 3.68 X10^3/uL (2.7-7.7); Neutrophil % 64.2 % (47-70); Platelet Count 80 K/mm3 (150-450); RBC Distribution Width CV 12.6 % (11.6-14.6); Red Blood Count 4.82 M/mm3 (4.2-5.4); White Blood Count 5.7 K/mm3 (4.4-11.0)
[2018-12-24 23:36] LABS: POSITIVE COUNT NO; POSITIVE DIFFERENTIAL NO; POSITIVE MORPHOLOGY NO
[2018-12-24 23:53] LABS: ALB/GLOB Ratio 1.1 RATIO (0.9-2.4); AST(SGOT) 23 U/L (15-37); Alanine Aminotransfer ALT/SGPT 40 U/L (13-56); Albumin, Serum 4.1 g/dL (3.2-5.0); Alkaline Phosphatase 87 U/L (45-117); Anion Gap 5 (5-15); BUN 13 mg/dL (7-18); BUN/Creat Ratio 10.7 RATIO (10-20); Chloride 107 mmol/L (98-107); Cholesterol 178 mg/dL (200); Creatinine, Serum 1.21 mg/dL (0.55-1.02); EST Glomerular Filtration Rate 48 mL/min (>60); Est Glom Filt Rate - Afr Amer 58 mL/min (>60); Globulin 3.7 g/dL (2.2-4.2); Glucose 93 mg/dL (74-106); High Density Lipoprotein 33 mg/dL; Potassium 4.4 mmol/L (3.5-5.1); Protein, Total 7.8 g/dL (6.4-8.2); Sodium Level 139 mmol/L (136-145); Triglycerides 332 mg/dL; Very Low Density Lipoprotein 66 mg/dL (5-40)
== END ==
PROVIDERS: Family Provider Nurse Practitioner; PCP Nurse Practitioner; Referring Provider Nurse Practitioner; Visit Provider Nurse Practitioner
DX: I10 Essential (primary) hypertension (principal); E78.5 Hyperlipidemia, unspecified; N39.0 Urinary tract infection, site not specified
CPT/HCPCS: 80053; 80061; 85025; 87077; 87086; 87088; 87186

== ENCOUNTER → 2018-12-30 21:27 | Outpatient (CLI) | payer OTHER, SELFPAY ==
[2018-12-24 15:23] VITALS: BMI 33.3
[2018-12-30 21:31] LABS: Absolute Lymphocyte Count 1.45 X10^3/ul (0.83-4.51); Absolute Neutrophil Count 4.3 X10^3/uL (2.0-7.7); Basophil# 0.05 X10^3/uL; Basophil% 0.7 % (0-1); Eosinophil# 0.15 X10^3/uL; Eosinophils% 2.2 % (0-5); Hematocrit 43.7 % (37-47); Hemoglobin 14.2 g/dl (12.0-15.0); Lymphocyte # 1.45 X10^3/ul (4.0); Lymphocyte % 21.7 % (19-41); Mean Corp Hgb Conc 32.5 g/gl (32-36); Mean Corpuscular Volume 92.2 fL (81-99); Mean Platelet Vol. 11.8 fl (6.2-12.0); Monocyte% 10.5 % (0-10); Neutrophil # 4.32 X10^3/uL (2.7-7.7); Neutrophil % 64.8 % (47-70); Platelet Count 159 K/mm3 (150-450); RBC Distribution Width CV 12.7 % (11.6-14.6); RBC Distribution Width SD 42.6 fl (35.1-43.9); Red Blood Count 4.74 M/mm3 (4.2-5.4); White Blood Count 6.7 K/mm3 (4.4-11.0)
[2018-12-30 21:32] LABS: POSITIVE COUNT NO; POSITIVE DIFFERENTIAL NO; POSITIVE MORPHOLOGY NO
== END ==
PROVIDERS: Family Provider Nurse Practitioner; PCP Nurse Practitioner; Referring Provider Nurse Practitioner; Visit Provider Nurse Practitioner
DX: D69.6 Thrombocytopenia, unspecified (principal)
CPT/HCPCS: 85025

== ENCOUNTER → 2020-01-03 | Outpatient (CLI) | payer OTHER, SELFPAY ==
[2020-01-03 15:02] VITALS: BMI 31.9
[2020-01-03 21:33] LABS: Absolute Lymphocyte Count 1.31 X10^3/uL (0.83-4.51); Basophil# 0.08 X10^3/uL; Basophil% 1.3 % (0-1); Eosinophil# 0.08 X10^3/uL; Eosinophils% 1.3 % (0-5); Hematocrit 45.1 % (37-47); Hemoglobin 15.1 g/dL (12.0-15.0); Lymphocyte # 1.31 X10^3/ul (4.0); Lymphocyte % 21.8 % (19-41); Mean Corp Hgb Conc 33.5 g/dL (32-36); Mean Corpuscular Hgb 30.3 pg (27.0-32.0); Mean Corpuscular Volume 90.4 fL (81-99); Mean Platelet Vol. 12.6 fl (6.2-12.0); Monocyte# 0.56 X10^3/uL; Monocyte% 9.3 % (0-10); NRBC Flagged by Analyzer 0 % (0-5); Neutrophil # 3.97 X10^3/uL (2.7-7.7); Platelet Count 130 K/mm3 (150-450); RBC Distribution Width CV 12.1 % (11.6-14.6); RBC Distribution Width SD 39.9 fl (35.1-43.9); Red Blood Count 4.99 M/mm3 (4.2-5.4)
[2020-01-03 21:56] LABS: ALB/GLOB Ratio 1.1 RATIO (0.9-2.4); AST(SGOT) 21 U/L (15-37); Alanine Aminotransfer ALT/SGPT 32 U/L (13-56); Alkaline Phosphatase 81 U/L (45-117); Anion Gap 8 (5-15); BUN 18 mg/dL (7-18); BUN/Creat Ratio 15.3 RATIO (10-20); Calcium,Total 9.3 mg/dL (8.5-10.1); Chloride 106 mmol/L (98-107); Cholesterol 160 mg/dL (200); Creatinine, Serum 1.18 mg/dL (0.55-1.02); EST Glomerular Filtration Rate 49 mL/min (>60); Est Glom Filt Rate - Afr Amer 59 mL/min (>60); Globulin 3.8 g/dL (2.2-4.2); Glucose 126 mg/dL (74-106); High Density Lipoprotein 34 mg/dL; Potassium 4.1 mmol/L (3.5-5.1); Protein, Total 7.8 g/dL (6.4-8.2); Sodium Level 139 mmol/L (136-145); Triglycerides 212 mg/dL; Very Low Density Lipoprotein 42 mg/dL (5-40)
== END | disposition home or self-care (01) ==
PROVIDERS: PCP Nurse Practitioner; Referring Provider Nurse Practitioner; Visit Provider Nurse Practitioner
DX: Z00.00 Encounter for general adult medical examination without abnormal findings (principal)
CPT/HCPCS: 80053; 80061; 85025

== ENCOUNTER → 2020-03-07 | Outpatient (CLI) | payer OTHER, SELFPAY ==
[2020-03-07 19:38] VITALS: BMI 32.5
== END | disposition home or self-care (01) ==
PROVIDERS: PCP Nurse Practitioner; Referring Provider Nurse Practitioner; Visit Provider Nurse Practitioner
DX: R39.15 Urgency of urination (principal)
CPT/HCPCS: 87086; 87088

== ENCOUNTER → 2020-12-12 | Outpatient (CLI) | payer OTHER, SELFPAY ==
[2020-12-12 14:57] VITALS: BMI 32.8
[2020-12-12 22:47] LABS: Absolute Lymphocyte Count 1.17 X10^3/uL (0.83-4.51); Basophil# 0.07 X10^3/uL; Basophil% 1.4 % (0-1); Eosinophils% 2.1 % (0-5); Hematocrit 44.2 % (37-47); Hemoglobin 14.7 g/dL (12.0-15.0); Lymphocyte # 1.17 X10^3/ul (4.0); Lymphocyte % 24.2 % (19-41); Mean Corp Hgb Conc 33.3 g/dL (32-36); Mean Corpuscular Hgb 30.8 pg (27.0-32.0); Mean Corpuscular Volume 92.5 fL (81-99); Mean Platelet Vol. 12.4 fl (6.2-12.0); Monocyte# 0.53 X10^3/uL; NRBC Flagged by Analyzer 0 % (0-5); Neutrophil # 2.96 X10^3/uL (2.7-7.7); Neutrophil % 61.1 % (47-70); Platelet Count 111 K/mm3 (150-450); RBC Distribution Width CV 11.9 % (11.6-14.6); RBC Distribution Width SD 39.9 fl (35.1-43.9); Red Blood Count 4.78 M/mm3 (4.2-5.4); White Blood Count 4.8 K/mm3 (4.4-11.0)
[2020-12-12 23:00] LABS: ALB/GLOB Ratio 1.1 RATIO (0.9-2.4); AST(SGOT) 22 U/L (15-37); Alanine Aminotransfer ALT/SGPT 34 U/L (13-56); Albumin, Serum 4.1 g/dL (3.2-5.0); Alkaline Phosphatase 76 U/L (45-117); Anion Gap 3 (5-15); BUN 12 mg/dL (7-18); Calcium,Total 9.7 mg/dL (8.5-10.1); Chloride 108 mmol/L (98-107); Cholesterol 175 mg/dL (200); Creatinine, Serum 1.09 mg/dL (0.55-1.02); EST Glomerular Filtration Rate 54 mL/min (>60); Est Glom Filt Rate - Afr Amer 65 mL/min (>60); Globulin 3.6 g/dL (2.2-4.2); Glucose 82 mg/dL (74-106); High Density Lipoprotein 38 mg/dL; Potassium 4.3 mmol/L (3.5-5.1); Protein, Total 7.7 g/dL (6.4-8.2); Sodium Level 140 mmol/L (136-145); Triglycerides 178 mg/dL; Very Low Density Lipoprotein 36 mg/dL (5-40)
== END | disposition home or self-care (01) ==
PROVIDERS: PCP Nurse Practitioner; Referring Provider Nurse Practitioner; Visit Provider Nurse Practitioner
DX: Z00.00 Encounter for general adult medical examination without abnormal findings (principal)
CPT/HCPCS: 80053; 80061; 85025

== ENCOUNTER → 2022-12-23 | Outpatient (CLI) | payer OTHER, SELFPAY ==
[2022-12-23 21:30] LABS: Absolute Lymphocyte Count 1.24 X10^3/uL (0.83-4.51); Absolute Neutrophil Count 4.2 X10^3/uL (2.0-7.7); Basophil# 0.08 X10^3/uL; Basophil% 1.3 % (0-1); Eosinophil# 0.11 X10^3/uL; Eosinophils% 1.7 % (0-5); Hematocrit 45.1 % (37-47); Hemoglobin 15.4 g/dL (12.0-15.0); Lymphocyte # 1.24 X10^3/ul (0.83-4.51); Lymphocyte % 19.6 % (19-41); Mean Corp Hgb Conc 34.1 g/dL (32-36); Mean Corpuscular Hgb 31.4 pg (27.0-32.0); Mean Corpuscular Volume 91.9 fL (81-99); Mean Platelet Vol. 12.8 fl (6.2-12.0); NRBC Flagged by Analyzer 0 % (0-5); Neutrophil % 66.2 % (47-70); Platelet Count 148 K/mm3 (150-450); RBC Distribution Width CV 11.9 % (11.6-14.6); RBC Distribution Width SD 40.2 fl (35.1-43.9); Red Blood Count 4.91 M/mm3 (4.2-5.4); White Blood Count 6.3 K/mm3 (4.4-11.0)
[2022-12-23 21:49] LABS: ALB/GLOB Ratio 1.1 RATIO (0.9-2.4); AST(SGOT) 31 U/L (15-37); Alanine Aminotransfer ALT/SGPT 39 U/L (13-56); Alkaline Phosphatase 73 U/L (45-117); Anion Gap 8 (5-15); BUN 15 mg/dL (7-18); BUN/Creat Ratio 13.8 RATIO (10-20); Calcium,Total 9.3 mg/dL (8.5-10.1); Chloride 107 mmol/L (98-107); Cholesterol 146 mg/dL (200); Creatinine, Serum 1.09 mg/dL (0.55-1.02); EST Glomerular Filtration Rate 53 mL/min (>60); Est Glom Filt Rate - Afr Amer 64 mL/min (>60); Globulin 3.7 g/dL (2.2-4.2); Glucose 111 mg/dL (74-106); High Density Lipoprotein 36 mg/dL; Potassium 4.4 mmol/L (3.5-5.1); Protein, Total 7.7 g/dL (6.4-8.2); Sodium Level 140 mmol/L (136-145); Triglycerides 198 mg/dL; Very Low Density Lipoprotein 40 mg/dL (5-40)
== END | disposition home or self-care (01) ==
PROVIDERS: PCP Nurse Practitioner; Visit Provider Nurse Practitioner
DX: A41.9 Sepsis, unspecified organism (principal); R65.20 Severe sepsis without septic shock; I10 Essential (primary) hypertension; E78.5 Hyperlipidemia, unspecified
CPT/HCPCS: 80053; 80061; 85025